=== PATIENT | female | born 1955 | race Caucasian/White ===

== ENCOUNTER 2019-10-22 12:02 | Observation (INO) ==
[2019-10-22] MEDS ORDERED: ROCEPHIN VIAL 1 GRAM 1 G in NS 100 ML IV + SPIKE MINIBAG* 100 ML IV SCH (17:00)
[2019-10-22] MEDS: DUONEB 0.5 MG/3 MG (3 mL) NEB SCH ×2 (17:11→20:51)
[2019-10-22 17:51] LABS: BASOPHILS % (AUTO) 0.8 % (0.2-1.0); EOSINOPHILS # (AUTO) 0.1 x10^3/uL (0.0-0.2); EOSINOPHILS % (AUTO) 2.1 % (0.9-2.9); HEMOGLOBIN 14.3 g/dL (12.0-16.0); LYMPHOCYTES # (AUTO) 1.4 X10^3/uL (1.3-2.9); LYMPHOCYTES % (AUTO) 21.1 % (21.0-51.0); MEAN CORPUSCULAR HEMOGLOBIN 29.1 pg (27.0-34.0); MEAN CORPUSCULAR HGB CONC 33.3 g/dL (33.0-35.0); MEAN CORPUSCULAR VOLUME 87.4 fL (80.0-100.0); MEAN PLATELET VOLUME 7.1 fL (7.4-11.0); MONOCYTES # (AUTO) 1.2 x10^3/uL (0.3-0.8); MONOCYTES % (AUTO) 18.7 % (0.0-13.0); NEUTROPHILS # (AUTO) 3.7 x10^3/uL (2.2-4.8); NEUTROPHILS % (AUTO) 57.3 % (42.0-75.0); PLATELET COUNT 357 X10^3/uL (150.0-450.0); RED BLOOD COUNT 4.92 X10^6/uL (3.5-5.4); WHITE BLOOD COUNT 6.4 X10^3/uL (3.6-10.0)
[2019-10-22] MEDS: NS 1000 ML 1,000 ML IV SCH (18:00)
[2019-10-22 18:50] VITALS: BMI 41.1
[2019-10-22 18:53] LABS: ALANINE AMINOTRANSFERASE 37 Units/L (12-78); ALKALINE PHOSPHATASE 98 Units/L (46-116); ASPARTATE AMINO TRANSFERASE 31 Units/L (15-37); BLOOD UREA NITROGEN 10 mg/dL (7-18); CALCIUM 9.5 mg/dL (8.5-10.1); CARBON DIOXIDE 31.3 mmol/L (21-32); CHLORIDE 101 mmol/L (98-107); CKMB % 2.3 % (<4); COR CA(FOR HYPOALB) 10.3 mg/dL (8.5-10.1); CREATINE KINASE 43 Units/L (26-192); CREATINE KINASE MB < 1.0 ng/mL (0-4.0); CREATININE 0.88 mg/dL (0.55-1.02); SODIUM 141 mmol/L (136-145); TROPONIN I < 0.02 ng/mL (0-1.5); eGFR NON BLACK RACES > 60 (>60)
--- NOTE | 2019-10-22 20:19 | RAD ---
HISTORYSOB, CHEST PAINSTUDYCHEST, [address] November 20, 2018FINDINGSThe trachea is midline. Enlarged cardiomediastinal silhouette. Mild central vascular congestion and pulmonary prominence. No focal consolidation or pneumothorax. The bony thorax is intact.IMPRESSIONMild central vascular congestion and pulmonary edema.Electronically signed by: BRENDON AMARO (Oct 22, 2019 20:19:47)
[2019-10-22] MEDS: PULMICORT NEB TX 0.5 MG NEB SCH (20:51)
[2019-10-22] MEDS: ROCEPHIN VIAL 1 GRAM 1 G in NS 100 ML IV + SPIKE MINIBAG* 100 ML IV SCH (21:02)
[2019-10-22] MEDS: TYLENOL 325 MG TAB PO PRN (21:03)
[2019-10-22 21:30] LABS: CKMB % 2.4 % (<4); CREATINE KINASE 41 Units/L (26-192); CREATINE KINASE MB < 1.0 ng/mL (0-4.0); TROPONIN I < 0.02 ng/mL (0-1.5)
[2019-10-23] MEDS: DUONEB 0.5 MG/3 MG (3 mL) NEB SCH ×6 (01:00→21:00)
[2019-10-23 01:25] LABS: CKMB % 3.3 % (<4); CREATINE KINASE 42 Units/L (26-192); CREATINE KINASE MB 1.4 ng/mL (0-4.0); TROPONIN I < 0.02 ng/mL (0-1.5)
[2019-10-23] MEDS: NS 1000 ML 1,000 ML IV SCH ×2 (05:52→22:43)
[2019-10-23 06:43] LABS: BASOPHILS % (AUTO) 0.7 % (0.2-1.0); EOSINOPHILS # (AUTO) 0.1 x10^3/uL (0.0-0.2); EOSINOPHILS % (AUTO) 1.9 % (0.9-2.9); HEMATOCRIT 39.3 % (36.0-47.0); HEMOGLOBIN 13.1 g/dL (12.0-16.0); LYMPHOCYTES # (AUTO) 1.5 X10^3/uL (1.3-2.9); LYMPHOCYTES % (AUTO) 32.5 % (21.0-51.0); MEAN CORPUSCULAR HGB CONC 33.3 g/dL (33.0-35.0); MEAN CORPUSCULAR VOLUME 87.2 fL (80.0-100.0); MEAN PLATELET VOLUME 7.1 fL (7.4-11.0); MONOCYTES # (AUTO) 0.9 x10^3/uL (0.3-0.8); NEUTROPHILS # (AUTO) 2.1 x10^3/uL (2.2-4.8); NEUTROPHILS % (AUTO) 44.9 % (42.0-75.0); PLATELET COUNT 306 X10^3/uL (150.0-450.0); RED CELL DISTRIBUTION WIDTH 14.1 % (11.6-16.5); WHITE BLOOD COUNT 4.7 X10^3/uL (3.6-10.0)
[2019-10-23 07:05] LABS: ALANINE AMINOTRANSFERASE 31 Units/L (12-78); ALBUMIN 2.6 g/dL (3.4-5.0); ALKALINE PHOSPHATASE 83 Units/L (46-116); ASPARTATE AMINO TRANSFERASE 25 Units/L (15-37); BLOOD UREA NITROGEN 9 mg/dL (7-18); CALCIUM 8.8 mg/dL (8.5-10.1); CHLORIDE 104 mmol/L (98-107); COR CA(FOR HYPOALB) 9.9 mg/dL (8.5-10.1); COR NA(FOR HYPERGLY) 142 mmol/L (136-145); CREATININE 0.74 mg/dL (0.55-1.02); SODIUM 142 mmol/L (136-145); TOTAL PROTEIN 6.9 g/dL (6.4-8.2); eGFR NON BLACK RACES > 60 (>60)
--- NOTE | 2019-10-23 07:43 | RAD ---
HISTORYSOBSTUDYCHEST, 1 VIEWCOMPARISONPortable chest October 22, 2019FINDINGSThe trachea is midline. The cardiac silhouette is unremarkable . The lungs are clear without focal infiltrate or effusion. The bony thorax is unremarkable.IMPRESSIONMild chronic changes in the bases but no acute cardiopulmonary disease and no significant change compared to yesterday's portable chest.Electronically signed by: MONIQUE JIMENEZ (Oct 23, 2019 07:42:19)
[2019-10-23] MEDS: PULMICORT NEB TX 0.5 MG NEB SCH ×2 (08:16→21:00)
[2019-10-23] MEDS ORDERED: ROCEPHIN VIAL 1 GRAM 1 G in NS 100 ML IV + SPIKE MINIBAG* 100 ML IV SCH (09:00)
[2019-10-23] MEDS ORDERED: PATIENT'S HOME MEDICATION (Tiotropium Bromide 1 CAP) IN SCH (10:15)
[2019-10-23] MEDS: LOVENOX INJ 40 MG SYR SC SCH (10:27)
[2019-10-23] MEDS: LYRICA CAP 150 mg PO SCH ×2 (10:45→21:33)
[2019-10-23] MEDS: PriLOSEC PO SCH (10:45)
[2019-10-23] MEDS: PEPCID TAB 20 MG PO SCH (10:46)
[2019-10-23] MEDS: ZANAFLEX PO SCH ×2 (10:46→21:33)
[2019-10-23] MEDS: HYDROCHLOROTHIAZIDE 25 MG TAB PO SCH (10:46)
[2019-10-23] MEDS: SINGULAIR TAB 10 MG PO SCH ×2 (11:00→21:34)
[2019-10-23] MEDS ORDERED: NS 250 ML IV 250 ML IV ONE (11:09)
[2019-10-23] MEDS: TYLENOL 325 MG TAB PO PRN (12:39)
[2019-10-23] MEDS ORDERED: POTASSIUM CHL 40 MEQ/NS 0.45% 500 ML IV PRN (17:47)
[2019-10-23] MEDS ORDERED: MICRO K EXTEN CAP 10 MEQ PO PRN (17:47)
[2019-10-23] MEDS ORDERED: POTASSIUM CHLORIDE LIQ 20 MEQ UDC PO PRN (17:47)
[2019-10-23] MEDS ORDERED: K-RIDER 10 MEQ/NS 100 ML 10 MEQ/100 ML BAG IV PRN (17:47)
[2019-10-23] MEDS ORDERED: POTASSIUM CHL 60 MEQ/NS 0.45% 500 ML IV PRN (17:47)
[2019-10-23] MEDS ORDERED: KLOR-CON PO PRN (17:47)
[2019-10-23] MEDS ORDERED: K-DUR TAB 20 MEQ PO PRN (17:47)
[2019-10-23] MEDS ORDERED: CRESTOR TAB 10 MG PO SCH (21:00)
[2019-10-23] MEDS ORDERED: KLONOPIN TAB 1 MG PO SCH (21:00)
--- NOTE | 2019-10-23 21:03 | DR.UPDATE ---
H&P Update History and Physical Update: History and Physical reviewed and patient examined. Changes noted: Yes with the following: WAS SEEN IN THE OFFICE FOR COMPLAINTS OF SHORTNESS OF BREATH, COUGH, AND SHORTNESS OF BREATH. SHE ALSO REPORTED INTERMITTENT CHEST PAIN AND HAD A SYNCOPAL EPISODE ONE DAY PRIOR. SHE REPORTS TAKING LEVAQUIN AND RESPIRATORY TREATMENTS AT HOME FOR BRONCHITIS WITHOUT SIGNIFICANT IMPROVEMENT IN SYMPTOMS. SHE WAS ADMITTED FOR FURTHER EVALUATION AND TREATMENT OF CHEST PAIN, SHORTNESS OF BREATH, AND BRONCHITIS. ON ADMISSION, VITALS WERE 98.0-94-22-94%-147/86. LABS WERE OBTAINED. ABNORMAL LAB VALUES INCLUDE THE FOLLOWING: CORRECTED CALCIUM 10.3, ALBUMIN 3.0, GLOBULIN 5.0. CARDIAC ENZYMES WITHIN NORMAL LIMITS. CHEST XRAY WAS OBTAINED AND REVEALED: Mild central vascular congestion and pulmonary edema. EKG REVEALED: SINUS RHYTHM WITH HR 85. SHE WAS STARTED ON NS AT KVO, THE POTASSIUM AND MAGNESIUM PROTOCOLS, ROCEPHIN 1G IV AT BEDTIME, RESPIRATORY TREATMENTS, LOVENOX 40MG SC DAILY, AND HOME MEDICATIONS WERE RESUMED. WE WILL OBTAIN AN ECHO AND CHEST CT WITH CONTRAST TODAY. OTHERWISE, WE WILL FOLLOW UP WITH AM LABS AND CHEST XRAY AND CONTINUE TO MONITOR. Prescription drug monitoring program results: PDMP reviewed and no concerns identified H&P Reviewed: Yes Patient was examined?: Yes
[2019-10-23] MEDS: ROCEPHIN VIAL 1 GRAM 1 G in NS 100 ML IV + SPIKE MINIBAG* 100 ML IV SCH (21:33)
[2019-10-24] MEDS: DUONEB 0.5 MG/3 MG (3 mL) NEB SCH ×3 (00:48→10:26)
[2019-10-24 06:21] LABS: BASOPHILS % (AUTO) 0.9 % (0.2-1.0); EOSINOPHILS # (AUTO) 0.2 x10^3/uL (0.0-0.2); EOSINOPHILS % (AUTO) 3.5 % (0.9-2.9); HEMATOCRIT 39.5 % (36.0-47.0); HEMOGLOBIN 13.1 g/dL (12.0-16.0); LYMPHOCYTES # (AUTO) 1.5 X10^3/uL (1.3-2.9); LYMPHOCYTES % (AUTO) 32.9 % (21.0-51.0); MEAN CORPUSCULAR HEMOGLOBIN 29.1 pg (27.0-34.0); MONOCYTES # (AUTO) 0.8 x10^3/uL (0.3-0.8); MONOCYTES % (AUTO) 17.8 % (0.0-13.0); NEUTROPHILS % (AUTO) 44.9 % (42.0-75.0); PLATELET COUNT 306 X10^3/uL (150.0-450.0); RED BLOOD COUNT 4.49 X10^6/uL (3.5-5.4); RED CELL DISTRIBUTION WIDTH 14.3 % (11.6-16.5); WHITE BLOOD COUNT 4.5 X10^3/uL (3.6-10.0)
--- NOTE | 2019-10-24 06:36 | RAD ---
HISTORYSOBSTUDYPortable AP chestCOMPARISONMarch 2019FINDINGSThere is mild interstitial lung disease. The heart and mediastinum are unremarkable. There is a thin linear opacity at the right costophrenic angle, apparently new and also at the left costophrenic angle. There is no effusion.IMPRESSIONMinimal plate atelectasis at both costophrenic angles.Electronically signed by: RISHABH ROWLAND (Oct 24, 2019 06:35:38)
[2019-10-24 06:59] LABS: ALANINE AMINOTRANSFERASE 30 Units/L (12-78); ALBUMIN 2.6 g/dL (3.4-5.0); ALKALINE PHOSPHATASE 78 Units/L (46-116); ASPARTATE AMINO TRANSFERASE 24 Units/L (15-37); BLOOD UREA NITROGEN 8 mg/dL (7-18); CHLORIDE 105 mmol/L (98-107); COR CA(FOR HYPOALB) 10.1 mg/dL (8.5-10.1); CREATININE 0.78 mg/dL (0.55-1.02); SODIUM 142 mmol/L (136-145); TOTAL PROTEIN 6.8 g/dL (6.4-8.2); eGFR NON BLACK RACES > 60 (>60)
--- NOTE | 2019-10-24 07:31 | CT ---
HISTORYCOUGH SOB CHEST PAINSTUDYCT chest after intravenous infusion of 75 mL CIS Omnipaque 350. Sagittal and coronal reformations were provided. Axial MIPS were displayed. Dose reduction techniques were utilized.COMPARISONApril 2018FINDINGSThere is a stable ill-defined nodular density posteriorly in the left upper lobe. Previously demonstrated left upper lobe anterior nodule has resolved. There is minimal centrilobular emphysema as before. There is no pleural effusion or lung mass or consolidation. There is no hilar adenopathy. There is no significant mediastinal adenopathy. The visualized upper abdomen is unremarkable. There are mild degenerative changes in the spine.IMPRESSIONResolution of previously demonstrated left upper lobe anteromedial nodule. Unchanged left upper lobe posterior nodular density most likely representing a scar.Electronically signed by: RISHABH ROWLAND (Oct 24, 2019 07:29:39)
[2019-10-24 08:07] VITALS: BP 118/57
[2019-10-24] MEDS: PriLOSEC PO SCH (09:18)
[2019-10-24] MEDS: LYRICA CAP 150 mg PO SCH (09:18)
[2019-10-24] MEDS: HYDROCHLOROTHIAZIDE 25 MG TAB PO SCH (09:18)
[2019-10-24] MEDS: LOVENOX INJ 40 MG SYR SC SCH (09:18)
[2019-10-24] MEDS: PEPCID TAB 20 MG PO SCH (09:18)
--- NOTE | 2019-10-24 10:09 | PCM.PROG ---
Progress Note - Progress Note for Day of Date of Exam: 10/24/19 - Subjective Subjective: IS BEING TREATED FOR BRONCHITIS, CHEST PAIN, AND SHORTNESS OF BREATH. SHE CONTINUES WITH SHORTNESS OF BREATH TODAY, BUT REPORTS IMPROVEMENT SINCE YESTERDAY. ON EXAMINATION, HEART IS REGULAR IN RATE AND RHYTHM. BILATERAL LUNGS ARE NOTED WITH DIMINISHED LUNG SOUNDS THROUGHOUT. ABDOMEN IS ROUND, SOFT, AND NON-TENDER WITH NORMAL BOWEL SOUNDS NOTED IN ALL QUADRANTS. HER VITALS THIS MORNING ARE: 98.0-72-20-93%NC-118/57. LABS WERE OBTAINED. SHE IS HEMODYNAMICALLY STABLE TODAY. A CHEST XRAY WAS OBTAINED TODAY AND REVEALED: Minimal plate atelectasis at both costophrenic angles. A CHEST CT WAS OBTAINED YESTERDAY AND REVEALED: There is a stable ill-defined nodular density posteriorly in the left upper lobe. Previously demonstrated left upper lobe anterior nodule has resolved. There is minimal centrilobular emphysema as before. There is no pleural effusion or lung mass or consolidation. There is no hilar adenopathy. There is no significant mediastinal adenopathy. The visualized upper abdomen is unremarkable. There are mild degenerative changes in the spine. ECHO REVEALED AN EJECTION FRACTION OF 62%, MILD PULMONARY HTN. SHE IS CURRENTLY RECEIVING NS AT KVO, THE POTASSIUM AND MAGNESIUM PROTOCOLS, ROCEPHIN 1G IV AT BEDTIME, RESPIRATORY TREATMENTS, LOVENOX 40MG SC DAILY, AND HOME MEDICATIONS WERE RESUMED. RESPIRATORY DID A 6 MINUTE WALK TEST. OXYGEN SATURATIONS WHILE WALKING FELL TO 87% ON ROOM AIR. WHEN OXYGEN VIA NASAL CANNULA AT 2L/MIN WAS APPLIED, OXYGEN SATURATIONS INCREASED TO 96%. ON ROOM AIR AT REST WHILE AT A CHRONIC STABLE STATE, OXYGEN SATURATIONS ARE 88%. WE WILL SET UP HOME OXYGEN. WE WILL CONTINUE A 10 DAY COURSE OF ANTIBIOTICS AND NEB TX AND FOLLOW HER IN THE OFFICE. - Past Medical Family Social History Past Med/Fam/Surg Hx: No changes since H&P Allergies: Allergies diclofenac Allergy (Verified 10/22/19 19:05) morphine Allergy (Verified 10/22/19 19:05) ondansetron [From Zofran] Allergy (Verified 10/22/19 19:05) oxycodone [From Percocet] Allergy (Verified 10/22/19 19:02) fluticasone [From Advair Diskus] Adverse Reaction (Verified 10/22/19 19:05) salmeterol [From Advair Diskus] Adverse Reaction (Verified 10/22/19 19:05) - Review of Systems ROS: No change since H&P - Vital Signs and I&O's Vital Signs: Temperature 98.0 F Pulse Rate [Left Brachial] 72 Pulse Rate 91 Respiratory Rate 20 Blood Pressure [Right Arm] 118/57 Blood Pressure [Left Arm] 156/77 Blood Pressure 127/75 O2 Sat by Pulse Oximetry 93 Intake and Output: Intake & Output 10/21/19 10/22/19 10/23/19 10/24/19 11:59 11:59 11:59 11:59 Intake Total 1200 / 1200 2049 Balance 1200 / 1200 2049 - Physical Exam Oriented: Normal Eyes: Normal Ear: Normal Nose: Normal Throat: Normal Respiratory: Generalized, Diminished Cardiovascular: Normal. negative: S3, S4, Murmur : Normal Auscultation: Bowel Sounds: Normal Palpation: Normal Tenderness: Normal Skin: Normal Musculoskeletal: Normal Psychiatric: Normal Mood Description: Calm Affect: Normal Speech Pattern: Clear, Appropriate - Laboratory and Diagnostics Result Diagrams: 10/24/19 05:36 10/24/19 05:36 Labs: Laboratory WBC 4.5 X10^3/uL (3.6-10.0) 10/24/19 05:36 RBC 4.49 X10^6/uL (3.5-5.4) 10/24/19 05:36 Hgb 13.1 g/dL (12.0-16.0) 10/24/19 05:36 Hct 39.5 % (36.0-47.0) 10/24/19 05:36 MCV 88.0 fL (80.0-100.0) 10/24/19 05:36 MCH 29.1 pg (27.0-34.0) 10/24/19 05:36 MCHC 33.0 g/dL (33.0-35.0) 10/24/19 05:36 RDW 14.3 % (11.6-16.5) 10/24/19 05:36 Plt Count 306 X10^3/uL (150.0-450.0) 10/24/19 05:36 MPV 7.0 fL (7.4-11.0) L 10/24/19 05:36 Neut % (Auto) 44.9 % (42.0-75.0) 10/24/19 05:36 Lymph % (Auto) 32.9 % (21.0-51.0) 10/24/19 05:36 Mccreary % (Auto) 17.8 % (0.0-13.0) H 10/24/19 05:36 Eos % (Auto) 3.5 % (0.9-2.9) H 10/24/19 05:36 Baso % (Auto) 0.9 % (0.2-1.0) 10/24/19 05:36 Neut # (Auto) 2.0 x10^3/uL (2.2-4.8) L 10/24/19 05:36 Lymph # (Auto) 1.5 X10^3/uL (1.3-2.9) 10/24/19 05:36 [place]reary # (Auto) 0.8 x10^3/uL (0.3-0.8) 10/24/19 05:36 Eos # (Auto) 0.2 x10^3/uL (0.0-0.2) 10/24/19 05:36 Baso # (Auto) 0.0 X10^3/uL (0.0-0.1) 10/24/19 05:36 Absolute Nucleated RBC 0.0 /100WBC 10/24/19 05:36 Sodium 142 mmol/L (136-145) 10/24/19 05:36 Corrected Sodium TNP 10/24/19 05:36 Potassium 3.7 mmol/L (3.5-5.1) 10/24/19 05:36 Chloride 105 mmol/L (98-107) 10/24/19 05:36 Carbon Dioxide 30.0 mmol/L (21-32) 10/24/19 05:36 BUN 8 mg/dL (7-18) 10/24/19 05:36 Creatinine 0.78 mg/dL (0.55-1.02) 10/24/19 05:36 Est GFR (MDRD) Af Amer > 60 (>60) 10/24/19 05:36 Est GFR (MDRD) Non-Af > 60 (>60) 10/24/19 05:36 Glucose 108 mg/dL (65-99) H 10/24/19 05:36 Calcium 9.0 mg/dL (8.5-10.1) 10/24/19 05:36 Corrected Calcium 10.1 mg/dL (8.5-10.1) 10/24/19 05:36 Magnesium 2.1 mg/dL (1.7-2.9) 10/23/19 05:58 Total Bilirubin 0.30 mg/dL (0.2-1.0) 10/24/19 05:36 AST 24 Units/L (15-37) 10/24/19 05:36 ALT 30 Units/L (12-78) 10/24/19 05:36 Alkaline Phosphatase 78 Units/L (46-116) 10/24/19 05:36 Creatine Kinase 42 Units/L (26-192) 10/23/19 00:57 CK-MB (CK-2) 1.4 ng/mL (0-4.0) 10/23/19 00:57 CK/CKMB % Calc 3.3 % (<4) 10/23/19 00:57 Troponin I < 0.02 ng/mL (0-1.5) 10/23/19 00:57 B-Natriuretic Peptide 10.8 pg/mL (0-79) 10/23/19 05:58 Total Protein 6.8 g/dL (6.4-8.2) 10/24/19 05:36 Albumin 2.6 g/dL (3.4-5.0) L 10/24/19 05:36 Globulin 4.2 g/dL (2.5-4.5) 10/24/19 05:36 Albumin/Globulin Ratio 0.6 Ratio (1.1-2.1) L 10/24/19 05:36 - Plan (1) Chronic obstructive lung disease Status: Active Plan: SUPPLEMENTAL OXYGEN, CONTINUE NEB TX AND INHALERS (2) Emphysema of lung Status: Acute Qualifiers: Emphysema type: centrilobular Qualified Code(s): J43.2 - Centrilobular emphysema (3) Bronchitis Status: Acute Plan: CONTINUE ANTIBIOTICS AND NEB TX (4) Shortness of breath Status: Acute (5) Chest pain Status: Resolved Qualifiers: Chest pain type: unspecified Qualified Code(s): R07.9 - Chest pain, unspecified
== END 2019-10-24 11:40 | disposition home or self-care (01) ==
LOC: MED/SURG
PROVIDERS: ADMIT Internal Medicine; ATTEND Internal Medicine
DX: R55 Syncope and collapse; Z72.0 Tobacco use; J43.2 Centrilobular emphysema; R07.89 Other chest pain; R06.02 Shortness of breath; J20.9 Acute bronchitis, unspecified; R26.89 Other abnormalities of gait and mobility
CPT/HCPCS: 36415; 71010; 71045; 71260; 80053; 82550; 82553; 83735; 83880; 84132; 84484; 85025; 93005; 93306; 94640; 94760; 96360; 96361; 96372; 97162; A4216; A4222; G0378; J0696; J1650; J3490; J7030; J7050; J7620; J7626

== ENCOUNTER 2023-02-14 10:45 | Observation (INO) ==
[2023-02-14 11:04] VITALS: BMI 36.6
[2023-02-14] MEDS ORDERED: DUONEB 0.5 MG/3 MG (3 mL) NEB ONE ×2 (11:07→11:18)
[2023-02-14] MEDS ORDERED: SOLU-Medrol 125 MG VIAL IVP ONE (11:07)
[2023-02-14] MEDS ORDERED: NS 1,000 ML IV 1,000 ML ONE (11:08)
--- NOTE | 2023-02-14 11:12 | DR.NAUSEAF ---
HPI Time Seen Time Seen by Provider: 02/14/23 10:58 Primary Care Physician Primary Care Physician: RIVAS Musa Complaints Chief Complaint Doctors Comments: c/o sob and pneumonia x days treated with abx ? 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 Pt has since been on multiple rounds of antibiotics and says she is only getting worse. Pt now c/o constipation with generalized abdominal pain described as constant pinching pain with no alleviating or worsening factors. Pt has also had fever up to 101.0 yesterday. Self Treatment fo Chief Complaint: Pt last took tylenol extra strength this morning around 1030 COVID-19 Coronavirus risk:travel/contact w/high risk person: No Has patient experienced Coronavirus symptoms: No Source History Provided: Patient Mode of Arrival Mode of Arrival: Ambulatory Timing Onset of Chief Complaint: 02/14/23 PMH PMH Past Medical History: Yes Past Medical History: Asthma, COPD, Coronary Artery Disease and [place] Past Medical History Comment: Emphysema Past Surgical History: Yes Surgical History: Appendectomy, and Hysterectomy Past Surgical History Comment: exploratory laparotomy, neck surgery, back surgery, bilateral carpal tunnel release Family History History of Family Medical Conditions: Yes Family Medical History: Diabetes Mellitus, Cancer and Hypertension Family Medical History Comment: CVA Social History Does patient currently use any type of tobacco product: No Have you used tobacco products in the last 12 months: No Type of Tobacco Use: None Does any household member use tobacco: No Alcohol Use: None Do you use any recreational Drugs:: No Lives With: Spouse Lives Where: Home Travel Risk Coronavirus risk:travel/contact w/high risk person: No Has patient experienced Coronavirus symptoms: No Infectious screening In the last 2 months have you had wt loss of >10#?: NO Have you had fever, night sweats or hemotysis?: No Have you traveled outside the country in the last 6 months?: No Isolation: Standard ROS Review of Systems Respiratoy: Short of Breath All Other Systems: Reviewed and Negative PE Vital Signs Vitals: Vital Signs Temperature 98.9 F Pulse Rate 99 Pulse Rate 102 Pulse Rate 103 Pulse Rate 106 Pulse Rate 105 Pulse Rate 108 Pulse Rate 110 Pulse Rate 117 Respiratory Rate 17 Respiratory Rate 20 Respiratory Rate 19 Respiratory Rate 23 Respiratory Rate 24 Respiratory Rate 18 Respiratory Rate 21 Respiratory Rate 22 Blood Pressure 119/63 O2 Sat by Pulse Oximetry 92 O2 Sat by Pulse Oximetry 92 O2 Sat by Pulse Oximetry 93 O2 Sat by Pulse Oximetry 94 O2 Sat by Pulse Oximetry 91 O2 Sat by Pulse Oximetry 91 O2 Sat by Pulse Oximetry 91 02/14/23 10:46 02/14/23 11:06 02/14/23 11:15 Temperature 98.9 F Pulse Rate 117 H 110 H 108 H Respiratory Rate 22 21 18 O2 Sat by Pulse Oximetry 91 L 91 L 91 L Oxygen Delivery Method Room Air Blood Pressure 119/63 Weight 200 lb 02/14/23 11:30 02/14/23 11:45 02/14/23 12:00 Temperature Pulse Rate 105 H 106 H 103 H Respiratory Rate 24 23 19 O2 Sat by Pulse Oximetry 94 L 93 L Oxygen Delivery Method Blood Pressure Weight 02/14/23 12:15 02/14/23 12:30 Temperature Pulse Rate 102 H 99 H Respiratory Rate 20 17 O2 Sat by Pulse Oximetry 92 L 92 L Oxygen Delivery Method Blood Pressure Weight Respiratory Respiratory Exam: Prolonged Expiratory Phase (decreased breath sounds bilat ) MDM Differential Diagnosis Differential Diagnosis: Considerations may Include:: Other (exacerbation copd) COURSE Treatment Treatment: given nebs steroids and cxr shows hyperexpansion Consultation Called: 12:57 Consultation Comments: Dr Araiza agreed to admit ROR Labs Reviewed Result Diagrams: 02/14/23 11:20 02/14/23 11:20 Laboratory: WBC 8.5 X10^3/uL (3.6-10.0) 02/14/23 11:20 RBC 4.63 X10^6/uL (3.5-5.4) 02/14/23 11:20 Hgb 13.8 g/dL (12.0-16.0) 02/14/23 11:20 Hct 40.9 % (36.0-47.0) 02/14/23 11:20 MCV 88.5 fL (80.0-100.0) 02/14/23 11:20 MCH 29.8 pg (27.0-34.0) 02/14/23 11:20 MCHC 33.6 g/dL (33.0-35.0) 02/14/23 11:20 RDW 14.1 % (11.6-16.5) 02/14/23 11:20 Plt Count 321 X10^3/uL (150.0-450.0) 02/14/23 11:20 MPV 7.5 fL (7.4-11.0) 02/14/23 11:20 Neut % (Auto) 63.7 % (42.0-75.0) 02/14/23 11:20 Lymph % (Auto) 16.0 % (21.0-51.0) L 02/14/23 11:20 [place] % (Auto) 16.4 % (0.0-13.0) H 02/14/23 11:20 Eos % (Auto) 3.4 % (0.9-2.9) H 02/14/23 11:20 Baso % (Auto) 0.5 % (0.2-1.0) 02/14/23 11:20 Neut # (Auto) 5.4 x10^3/uL (2.2-4.8) H 02/14/23 11:20 Lymph # (Auto) 1.4 X10^3/uL (1.3-2.9) 02/14/23 11:20 [place] # (Auto) 1.4 x10^3/uL (0.3-0.8) H 02/14/23 11:20 Eos # (Auto) 0.3 x10^3/uL (0.0-0.2) H 02/14/23 11:20 Baso # (Auto) 0.0 X10^3/uL (0.0-0.1) 02/14/23 11:20 Absolute Nucleated RBC 0.0 /100WBC 02/14/23 11:20 D-Dimer 1.38 ug/ml (0.0-0.57) H 02/14/23 11:20 Sample Site Lrad 02/14/23 11:29 ABG pH 7.500 (7.35-7.45) H 02/14/23 11:29 ABG pCO2 32.0 mmHg (35.0-45.0) L 02/14/23 11:29 ABG pO2 58.0 mmHg (80.0-100.0) L 02/14/23 11:29 ABG HCO3 25.0 mmol/L (22-26) 02/14/23 11:29 ABG O2 Saturation 92.0 % (90-100) 02/14/23 11:29 ABG Base Excess 2.3 mmol/L (-2.0-2.0) H 02/14/23 11:29 Chucho Test Pos 02/14/23 11:29 A-a Gradient 52.0 mmHg 02/14/23 11:29 FiO2 21.0 02/14/23 11:29 Blood Gas Comments Pt jorgito well elj gregorio 02/14/23 11:29 Sodium 135 mmol/L (136-145) L 02/14/23 11:20 Corrected Sodium 136 mmol/L (136-145) 02/14/23 11:20 Potassium 3.8 mmol/L (3.5-5.1) 02/14/23 11:20 Chloride 98 mmol/L (98-107) 02/14/23 11:20 Carbon Dioxide 24.2 mmol/L (21-32) 02/14/23 11:20 BUN 19 mg/dL (7-18) H 02/14/23 11:20 Creatinine 1.00 mg/dL (0.55-1.02) 02/14/23 11:20 Est GFR (MDRD) Af Amer > 60 (>60) 02/14/23 11:20 Est GFR (MDRD) Non-Af 59 (>60) 02/14/23 11:20 Glucose 121 mg/dL (65-99) H 02/14/23 11:20 Lactic Acid 1.2 mmol/L (0.4-2.0) 02/14/23 11:20 Calcium 9.3 mg/dL (8.5-10.1) 02/14/23 11:20 Corrected Calcium 10.3 mg/dL (8.5-10.1) H 02/14/23 11:20 Total Bilirubin 0.30 mg/dL (0.2-1.0) 02/14/23 11:20 AST 16 Units/L (15-37) 02/14/23 11:20 ALT 15 Units/L (12-78) 02/14/23 11:20 Alkaline Phosphatase 75 Units/L (46-116) 02/14/23 11:20 Troponin I High Sens 5.8 ng/L (4.0-60.0) 02/14/23 11:20 Total Protein 7.6 g/dL (6.4-8.2) 02/14/23 11:20 Albumin 2.8 g/dL (3.4-5.0) L 02/14/23 11:20 Globulin 4.8 g/dL (2.5-4.5) H 02/14/23 11:20 Albumin/Globulin Ratio 0.6 Ratio (1.1-2.1) L 02/14/23 11:20 Amylase 43 Units/L (25-115) 02/14/23 11:20 Lipase 81 Units/L (73-393) 02/14/23 11:20 SARS-CoV-2 (PCR) Negative (NEGATIVE) 02/14/23 11:12 Influenza Type A (PCR) Negative (NEGATIVE) 02/14/23 11:12 Influenza Type B (PCR) Negative (NEGATIVE) 02/14/23 11:12 RSV (PCR) Negative (NEGATIVE) 02/14/23 11:12 S. pyogenes (TEM-PCR) Not detected (NOT DETECT) 02/14/23 11:37 Opioid Opioid Risk Tool Age (Memo box if 16-45): No History of Preadolescent Sexual Abuse: No Total: 0 Total Score Risk Category: Low Risk Copyright: Donnie CABRERA predicting aberrant behaviors Discharge Plan Diagnosis Discharge Problem: Hypoxia Discharge Plan Patient Disposition: 09 ADMITTED INPATIENT Condition: Stable Prescriptions: No Action omeprazole 20 MG capsule,delayed release(DR/EC) 40 mg PO DAILY famotidine 20 mg Tablet 20 mg PO DAILY montelukast 10 mg Tablet 10 mg PO QHS rosuvastatin 20 mg Tablet 10 mg PO HS Spiriva with HandiHaler 18 mcg Capsule, W/Inhalation Device 1 cap INHALATION DAILY tizanidine 4 mg Capsule 4 mg PO QHS PRN pregabalin 150 mg Capsule 150 mg PO TID hydrochlorothiazide 12.5 mg Tablet 25 mg PO DAILY potassium chloride 10 mEq tablet,ER particles/crystals 1 tab PO QDAY Ozempic 1 mg/dose (4 mg/3 mL) pen injector 1 mg SUBCUT QWEEK hydrocodone-acetaminophen 5-325 mg Tablet 1 tab PO QID docusate sodium [Stool Softener] 100 mg Capsule 100 mg PO HS folic acid 1 mg Tablet 1 mg PO DAILY Ventolin 90 mcg/actuation Aerosol 90 mcg INHALATION PRN PRN cholecalciferol (vitamin D3) [D-3-5] 125 mcg (5,000 unit) Capsule 50,000 unit PO WEEKLY budesonide-formoterol [Symbicort] 160-4.5 mcg/actuation Hfa Aerosol Inhaler 2 puff INHALATION BID Aleve PM 220-25 mg Tablet 2 tab PO HS Breztri Aerosphere 160-9-4.8 mcg/actuation Hfa Aerosol Inhaler 2 inh INHALATION HS Health Concerns: Post Hospitalization: new medications and changes needed to prevent readmission or further decline. Pt educated and given instructions on all concerns. Plan of Treatment: Continue with present treatment and follow up plan. Pt is to keep follow up appointment as instructed and take medications as ordered. Follow ups/Referrals Follow ups/Referrals: Stevie Araiza [Primary Care Provider] - 3 days Instructions Stand Alone Forms: Post Hospital Follow Up Care
[2023-02-14] MEDS ORDERED: NS 1,000 ML IV 1,000 ML IV ONE (11:23)
[2023-02-14] MEDS ORDERED: SOLU-Medrol 125 MG VIAL ONE (11:24)
[2023-02-14] MEDS ORDERED: XOPENEX 1.25 MG/3 ML NEBULE NEB ONE ×2 (11:31→11:33)
[2023-02-14 11:40] LABS: BASOPHILS % (AUTO) 0.5 % (0.2-1.0); EOSINOPHILS # (AUTO) 0.3 x10^3/uL (0.0-0.2); EOSINOPHILS % (AUTO) 3.4 % (0.9-2.9); HEMATOCRIT 40.9 % (36.0-47.0); HEMOGLOBIN 13.8 g/dL (12.0-16.0); LYMPHOCYTES # (AUTO) 1.4 X10^3/uL (1.3-2.9); MEAN CORPUSCULAR HEMOGLOBIN 29.8 pg (27.0-34.0); MEAN CORPUSCULAR HGB CONC 33.6 g/dL (33.0-35.0); MEAN CORPUSCULAR VOLUME 88.5 fL (80.0-100.0); MEAN PLATELET VOLUME 7.5 fL (7.4-11.0); MONOCYTES # (AUTO) 1.4 x10^3/uL (0.3-0.8); MONOCYTES % (AUTO) 16.4 % (0.0-13.0); NEUTROPHILS # (AUTO) 5.4 x10^3/uL (2.2-4.8); NEUTROPHILS % (AUTO) 63.7 % (42.0-75.0); PLATELET COUNT 321 X10^3/uL (150.0-450.0); RED BLOOD COUNT 4.63 X10^6/uL (3.5-5.4); RED CELL DISTRIBUTION WIDTH 14.1 % (11.6-16.5); WHITE BLOOD COUNT 8.5 X10^3/uL (3.6-10.0)
[2023-02-14 11:41] LABS: ABG BASE EXCESS 2.3 mmol/L (-2.0-2.0)
[2023-02-14 11:42] LABS: ABG ALLEN TEST POS
--- NOTE | 2023-02-14 11:47 | EKG ---
Test Reason : sob Blood Pressure : */* mmHG Vent. Rate : 105 BPM Atrial Rate : 105 BPM P-R Int : 136 ms QRS Dur : 76 ms QT Int : 334 ms P-R-T Axes : 60 -12 40 degrees QTc Int : 441 ms Sinus tachycardia Inferior infarct , age undetermined Abnormal ECG No previous ECGs available Confirmed by Vic Hicks ([id number]) on 02/14/2023 6:32:08 PM Referred By: Confirmed By: Vic Hicks
[2023-02-14 11:56] LABS: ALANINE AMINOTRANSFERASE 15 Units/L (12-78); ALBUMIN 2.8 g/dL (3.4-5.0); ALKALINE PHOSPHATASE 75 Units/L (46-116); AMYLASE 43 Units/L (25-115); ASPARTATE AMINO TRANSFERASE 16 Units/L (15-37); BLOOD UREA NITROGEN 19 mg/dL (7-18); CALCIUM 9.3 mg/dL (8.5-10.1); CARBON DIOXIDE 24.2 mmol/L (21-32); CHLORIDE 98 mmol/L (98-107); COR CA(FOR HYPOALB) 10.3 mg/dL (8.5-10.1); COR NA(FOR HYPERGLY) 136 mmol/L (136-145); GLUCOSE 121 mg/dL (65-99); LIPASE 81 Units/L (73-393); POTASSIUM 3.8 mmol/L (3.5-5.1); SODIUM 135 mmol/L (136-145); TOTAL PROTEIN 7.6 g/dL (6.4-8.2); eGFR NON BLACK RACES 59 (>60)
[2023-02-14] MEDS ORDERED: ROCEPHIN VIAL 1 GRAM 1 G in NS 100 ML IV 100 ML IV ONE (12:00)
[2023-02-14] MEDS ORDERED: NS 100 ML IV 100 ML ONE (12:21)
[2023-02-14] MEDS ORDERED: ROCEPHIN VIAL 1 GRAM ONE (12:21)
[2023-02-14] MEDS ORDERED: OMNIPAQUE 350 mg/mL 100 mL BTL 100 ML ONE (12:24)
--- NOTE | 2023-02-14 13:23 | CT ---
CTA CHESTCLINICAL INDICATION: POSS PEPROCEDURE: Non gated axial images of the chest were obtained with intravenous contrast according to pulmonary embolism protocol. MIPS were reconstructed Dose reduction techniques including Automated Exposure Control (AEC) and adjustment of mA and kV were utlized.COMPARISON:NoneFINDINGS:No evidence of a pulmonary embolism to the level of the segmental pulmonary arteries.The heart is normal in size . No pericardial effusion. Severe coronary calcification. Shotty mediastinal adenopathy.. Diffuse patchy ground-glass with some more focal regions of solid opacity involving primarily the lower lobes. Diffuse septal thickening is present. No pneumothorax .Airways are patent . No suspicious pulmonary nodules or masses .Limited images of the upper abdomen are unremarkable.No aggressive osseous lesions.IMPRESSION:1. No evidence of pulmonary embolism.2. Findings possibly representing acute atypical infection.Electronically signed by: ASAD MOREL (Feb 14, 2023 13:21:02)
[2023-02-14] MEDS: SOLU-Medrol 40 MG VIAL IVP SCH ×2 (14:11→21:20)
[2023-02-14] MEDS: LYRICA CAP 150 mg PO SCH ×2 (14:12→21:20)
[2023-02-14] MEDS: LOVENOX INJ 40 MG SYR SC SCH (14:13)
[2023-02-14] MEDS: ROCEPHIN VIAL 1 GRAM 1 G in NS 100 ML IV 100 ML IV SCH (14:13)
[2023-02-14] MEDS ORDERED: KLOR-CON PO SCH (14:30)
[2023-02-14 14:43] LABS: BILIRUBIN,URINE NEGATIVE (NEGATIVE); BLOOD/HEMOGLOBIN,URINE NEGATIVE (NEGATIVE); GLUCOSE, URINE NEGATIVE (NEGATIVE); KETONES,URINE NEGATIVE (NEGATIVE); LEUKOCYTE ESTERASE ,URINE NEGATIVE (NEGATIVE); NITRITES,URINE NEGATIVE (NEGATIVE); PROTEIN,URINE NEGATIVE (NEGATIVE); UROBILINOGEN,URINE NORMAL (NORMAL)
[2023-02-14 14:46] LABS: APPEARANCE,URINE CLEAR (CLEAR); COLOR,URINE YELLOW (YELLOW)
--- NOTE | 2023-02-14 14:59 | RAD ---
HISTORYSOB ASTHMA, COPD, CAD, , , HYST, NECK, BACK, CARPEL TUNNELSTUDYCHEST, 1 VIEWCOMPARISONNone availableFINDINGSThe trachea is midline. The cardiac silhouette is unremarkable. No focal pneumonia pneumothorax or pleural effusions. There is some increase of the interstitial markings at the bases probably chronic.IMPRESSIONNo acute cardiopulmonary findings .Suspected chronic changes in the bases with mild peribronchial thickening.Electronically signed by: Vickie Ca (Feb 14, 2023 14:57:41)
[2023-02-14] MEDS: XOPENEX 1.25 MG/3 ML NEBULE NEB SCH ×2 (16:23→20:49)
[2023-02-14] MEDS ORDERED: NovoLIN R (or HumuLIN R) SUBCUT PRN (20:18)
[2023-02-14] MEDS ORDERED: LYRICA CAP 150 mg PO ONE (20:29)
[2023-02-14] MEDS ORDERED: SOLU-Medrol 40 MG VIAL ONE (20:29)
[2023-02-14] MEDS ORDERED: NovoLIN R (or HumuLIN R) ONE (20:30)
[2023-02-14] MEDS: PULMICORT NEB TX 0.5 MG NEB SCH (20:49)
[2023-02-14] MEDS: CRESTOR TAB 10 MG PO SCH (21:19)
[2023-02-14] MEDS: SINGULAIR TAB 10 MG PO SCH (21:20)
[2023-02-14] MEDS: COLACE CAP 100 MG PO PRN (21:22)
[2023-02-15] MEDS ORDERED: TYLENOL 325 MG TAB PO PRN (00:32)
[2023-02-15] MEDS: SOLU-Medrol 40 MG VIAL IVP SCH ×3 (05:33→21:24)
[2023-02-15] MEDS: LYRICA CAP 150 mg PO SCH ×3 (05:34→21:23)
--- NOTE | 2023-02-15 05:36 | EKG ---
Test Reason : cp Blood Pressure : */* mmHG Vent. Rate : 68 BPM Atrial Rate : 68 BPM P-R Int : 154 ms QRS Dur : 82 ms QT Int : 434 ms P-R-T Axes : 68 9 43 degrees QTc Int : 461 ms Normal sinus rhythm Normal ECG When compared with ECG of 14-FEB-2023 11:45, Vent. rate has decreased BY 37 BPM Criteria for Inferior infarct are no longer present Confirmed by Vic Hicks ([id number]) on 02/16/2023 6:04:18 PM Referred By: Confirmed By: Vic Hicks
[2023-02-15 06:07] LABS: BASOPHILS % (AUTO) 0.2 % (0.2-1.0); EOSINOPHILS % (AUTO) 0.1 % (0.9-2.9); HEMATOCRIT 42.1 % (36.0-47.0); HEMOGLOBIN 14.1 g/dL (12.0-16.0); LYMPHOCYTES # (AUTO) 1.1 X10^3/uL (1.3-2.9); LYMPHOCYTES % (AUTO) 13.9 % (21.0-51.0); MEAN CORPUSCULAR HEMOGLOBIN 29.8 pg (27.0-34.0); MEAN CORPUSCULAR HGB CONC 33.5 g/dL (33.0-35.0); MEAN PLATELET VOLUME 7.7 fL (7.4-11.0); MONOCYTES # (AUTO) 0.3 x10^3/uL (0.3-0.8); MONOCYTES % (AUTO) 3.6 % (0.0-13.0); NEUTROPHILS # (AUTO) 6.3 x10^3/uL (2.2-4.8); NEUTROPHILS % (AUTO) 82.2 % (42.0-75.0); PLATELET COUNT 363 X10^3/uL (150.0-450.0); RED BLOOD COUNT 4.73 X10^6/uL (3.5-5.4); RED CELL DISTRIBUTION WIDTH 13.4 % (11.6-16.5); WHITE BLOOD COUNT 7.7 X10^3/uL (3.6-10.0)
[2023-02-15 06:28] LABS: ALANINE AMINOTRANSFERASE 16 Units/L (12-78); ALKALINE PHOSPHATASE 73 Units/L (46-116); ASPARTATE AMINO TRANSFERASE 12 Units/L (15-37); BLOOD UREA NITROGEN 14 mg/dL (7-18); CALCIUM 9.6 mg/dL (8.5-10.1); CARBON DIOXIDE 27.9 mmol/L (21-32); CHLORIDE 103 mmol/L (98-107); COR CA(FOR HYPOALB) 10.4 mg/dL (8.5-10.1); COR NA(FOR HYPERGLY) 143 mmol/L (136-145); CREATININE 1.07 mg/dL (0.55-1.02); GLUCOSE 151 mg/dL (65-99); MAGNESIUM 2.2 mg/dL (2.0-2.9); POTASSIUM 3.7 mmol/L (3.5-5.1); SODIUM 142 mmol/L (136-145); eGFR NON BLACK RACES 55 (>60)
--- NOTE | 2023-02-15 08:12 | RAD ---
HISTORYHypoxia, COPDSTUDYChest AP [id number]/28/2023FINDINGSHear t size is normal. Yulia are normal. Lungs are well inflated and free of acute alveolar infiltrates. No pleural effusions are identified. Bony thorax is unremarkable.IMPRESSIONNo significant abnormality identifiedElectronically signed by: BARBARA WITT (Feb 15, 2023 08:10:45)
[2023-02-15] MEDS: PULMICORT NEB TX 0.5 MG NEB SCH ×2 (08:25→20:50)
[2023-02-15] MEDS: XOPENEX 1.25 MG/3 ML NEBULE NEB SCH ×4 (08:25→20:50)
[2023-02-15 08:52] VITALS: RESP 20
[2023-02-15] MEDS: HYDROCHLOROTHIAZIDE 25 MG TAB PO SCH (09:45)
[2023-02-15] MEDS: PriLOSEC PO SCH (09:46)
[2023-02-15] MEDS: PEPCID TAB 20 MG PO SCH (09:46)
[2023-02-15] MEDS: LOVENOX INJ 40 MG SYR SC SCH (09:46)
[2023-02-15] MEDS: ROCEPHIN VIAL 1 GRAM 1 G in NS 100 ML IV 100 ML IV SCH (09:46)
[2023-02-15] MEDS ORDERED: K-DUR TAB 20 MEQ PO SCH (10:00)
--- NOTE | 2023-02-15 10:21 | DR.H&P ---
H&P - History & Physical for Day of: H&P Date: 02/14/23 - Chief Complaint Chief Complaint: SOB, COUGH - History of Present Illness History of Present Illness: IS A 67 YEAR OLD PATIENT OF OURS. SHE HAS A PMH OF ASTHMA, COPD, EMPHYSEMA, CAD, IA, APPENDECTOMY, , HYSTERECTOMY, NECK SURGERY, BACK SURGERY, BILATERAL CARPAL TUNNEL RELEASE. SHE PRESENTED TO THE ER WITH COMPLAINTS OF WORSENING SHORTNESS OF BREATH, A NON-PRODUCTIVE COUGH, AND FEELINGS OF TIGHTNESS AROUND THE LUNGS. SHE WAS RECENTLY SEEN BY HER PATHOLOGY MANAGER AND WAS TREATED FOR BILATERAL PNEUMONIA. SHE REPORTS BEING ON MULTIPLE ROUNDS OF ANTIBIOTICS. SHE DENIES IMPROVEMENT IN SYMPTOMS DESPITE COMPLIANCE WITH MEDICATIONS. RECORDS INDICATE THAT SHE WAS PRESCRIBED AZITHROMYCIN X 5 DAYS, BUDESONIDE NEBS, DUONEBS TID, PREDNISONE 20MG X 15 DAYS, AND MOST RECENTLY AUGMENTIN 875/125MG BID. ON ARRIVAL TO THE HOSPITAL, HER VITALS WERE [id number]%-119/63. SHE WAS PLACED ON OXYGEN VIA NASAL CANNULA AT 2 LPM. LABS WERE OBTAINED. WBC 8.5, RBC 4.63, HGB 13.8, HCT 40.9, PLT COUNT 321, D-DIMER 1.38, SODIUM 135, POTASSIUM 3.8, CHLORIDE 98, CARBON DIOXIDE 24.2, BUN 19, CREATININE 1.00, GLUCOSE 121, CALCIUM 9.3, AST 16, ALT 15, ALK PHOS 75, TROPONIN 5.8, TOTAL PROTEIN 7.6, ALBUMIN 2.8, LACTIC ACID 1.2. ABG REVEALED: PH 7.500, PC02 32, P02 58, HC03 25, 02 SAT 92, BASE EXCESS 2.3, FI02 21.0. URINALYSIS WAS OBTAINED AND WAS UNREMARKABLE. BLOOD CULTURES WERE SET UP. A CHEST XRAY WAS OBTAINED AND REVEALED: No acute cardiopulmonary findings. Suspected chronic changes in the bases with mild peribronchial thickening. A CHEST CTA WAS THEN OBTAINED AND REVEALED: 1. No evidence of pulmonary embolism. 2. Findings possibly representing acute atypical infection. EKG REVEALED SINUS TACHYCARDIA WITH HR 105 BPM. IN THE ER, SHE WAS GIVEN SOLU- MEDROL 125MG IV X 1, A NORMAL SALINE 1 LITER BOLUS, XOPENEX NEB X 1, ROCEPHIN 1G IV X 1, AND POTASSIUM CHLORIDE 20MEQ X 1. SHE WAS ADMITTED TO THE HOSPITALS FOR FURTHER EVALUATION AND TREATMENT OF COPD EXACERBATION WITH ACUTE BRONCHITIS, HYPOXIA, SHORTNESS OF BREATH, HYPOKALEMIA. SHE WAS STARTED ON ROCEPHIN 1G IV DAILY, XOPENEX NEBS QID, PULMICORT NEBS BID, LOVENOX 40MG SC DAILY, SOLU-MEDROL 80MG IV Q8H, TYLENOL 650MG PO Q6H PRN, ZYRTEC 10MG DAILY. DUE TO ADMINISTRATION OF SOLU-MEDROL, WE WILL CHECK OTBS ACHS AND ADMINISTER HUMULIN R SLIDING SCALE. HER HOME MEDICATIONS OF COLACE, PEPCID, HCTZ, SINGULAIR, PRILOSEC, LYRICA, AND CRESTOR WERE RESUMED. WE WILL OBTAIN AN AIT RESPIRATORY SWAB AND COLLECT A SPUTUM CULTURE IF SHE IS ABLE TO PRODUCE ANY SPUTUM. OTHERWISE, WE PLAN TO FOLLOW UP WITH AM LABS AND CHEST XRAY AND CONTINUE TO MONITOR. TIME SPENT ON CLINICAL ASSESSMENT, REVIEWING LABS AND IMAGING, DECISION MAKING, AND DOCUMENTATION GREATER THAN 75 MINUTES. - Past Medical History Past Medical History: Asthma, COPD, Coronary Artery Disease, Dyslipidemia, GERD, IA - Past Surgical History Surgical History: Appendectomy, , Hysterectomy - Family History Family Medical History: Diabetes Mellitus, Cancer, Hypertension - Social History Does patient currently use any type of tobacco product: No Have you used tobacco products in the last 12 months: No Type of Tobacco Use: None Does any household member use tobacco: No Alcohol Use: None Drug Use: None - Review of Systems Constitutional: Weakness. denies: Fever, Chills Eyes: No Symptoms Reported ENT: No Symptoms Reported Respiratory: Cough, Shortness of Breath, SOB with Excertion, Wheezing Cardiovascular: No Symptoms Reported Gastrointestinal: No Symptoms Reported Genitourinary: No Symptoms Reported Musculoskeletal: No Symptoms Reported Skin: No Symptoms Reported Neurological: Weakness - Physical Exam Vital Signs: Vital Signs Temperature 98 F Temperature 97.7 F Pulse Rate [Left Radial] 89 Pulse Rate [Left Radial] 77 Pulse Rate 91 Respiratory Rate 20 Respiratory Rate 18 Respiratory Rate 18 Blood Pressure [Right Arm] 157/72 Blood Pressure [Right Arm] 147/75 O2 Sat by Pulse Oximetry 94 O2 Sat by Pulse Oximetry 96 O2 Sat by Pulse Oximetry 96 Oriented: Normal Eyes: Normal Ear: Normal Nose: Normal Throat: Normal Respiratory: Wheezes Throughout Cardiovascular: Tachycardia : Normal Auscultation: Bowel Sounds: Normal Palpation: Normal Tenderness: Normal Skin: Normal Musculoskeletal: Normal Psychiatric: Normal Mood Description: Calm Affect: Normal Speech Pattern: Clear - Assessment/Plan (1) COPD exacerbation Status: Acute Plan: ADMIT, SUPPLEMENTAL OXYGEN, ROCEPHIN 1G IV DAILY, XOPENEX NEBS QID, PULMICORT NEBS BID, LOVENOX 40MG SC DAILY, SOLU-MEDROL 80MG IV Q8H, TYLENOL 650MG PO Q6H PRN, ZYRTEC 10MG DAILY. DUE TO ADMINISTRATION OF SOLU-MEDROL, WE WILL CHECK OTBS ACHS AND ADMINISTER HUMULIN R SLIDING SCALE. HER HOME MEDICA TIONS OF COLACE, PEPCID, HCTZ, SINGULAIR, PRILOSEC, LYRICA, AND CRESTOR WERE RESUMED. (2) Acute bronchitis Qualifiers: Bronchitis organism: unspecified organism Qualified Code(s): J20.9 - Acute bronchitis, unspecified Status: Acute (3) Shortness of breath Status: Acute (4) Hypoxia Status: Acute (5) Hyperlipidemia Qualifiers: Hyperlipidemia type: mixed hyperlipidemia Qualified Code(s): E78.2 - Mixed hyperlipidemia Status: Chronic (6) GERD (gastroesophageal reflux disease) Qualifiers: Esophagitis presence: esophagitis presence not specified Qualified Code(s): K21.9 - Gastro-esophageal reflux disease without esophagitis Status: Chronic - Allergies Allergies/Adverse Reactions: Allergies Allergy/AdvReac Type Severity Reaction Status Date / Time diclofenac Allergy Verified 02/14/23 11:05 morphine Allergy Verified 02/14/23 11:05 ondansetron [From Zofran] Allergy Verified 02/14/23 11:05 oxycodone [From Percocet] Allergy Verified 02/14/23 11:05 fluticasone AdvReac Verified 02/14/23 11:05 [From Advair Diskus] salmeterol AdvReac Verified 02/14/23 11:05 [From Advair Diskus] - Medications Home Medications: Home Medications Medication Instructions Recorded Confirmed omeprazole 20 mg capsule,delayed 40 mg PO DAILY 09/07/16 02/14/23 release famotidine 20 mg tablet 20 mg PO DAILY 10/22/19 02/14/23 hydrochlorothiazide 12.5 mg tablet 25 mg PO DAILY 10/22/19 02/14/23 montelukast 10 mg tablet 10 mg PO QHS 10/22/19 02/14/23 pregabalin 150 mg capsule 150 mg PO TID 10/22/19 02/14/23 rosuvastatin 20 mg tablet 10 mg PO HS 10/22/19 02/14/23 tiotropium bromide 18 mcg capsule 1 cap inhalation DAILY 10/22/19 02/14/23 with inhalation device (Spiriva with HandiHaler) tizanidine 4 mg capsule 4 mg PO QHS PRN 10/22/19 02/14/23 albuterol 90 mcg/actuation aerosol 90 mcg inhalation PRN PRN 02/14/23 02/14/23 inhaler budesonide 160 mcg-glycopyr 9 2 inh inhalation HS 02/14/23 02/14/23 mcg-formot 4.8 mcg/actuation HFA inhaler (Breztri Aerosphere) budesonide-formoterol HFA 160 2 puff inhalation BID 02/14/23 02/14/23 mcg-4.5 mcg/actuation aerosol inhaler (Symbicort) cholecalciferol (vitamin D3) 125 50,000 unit PO WEEKLY 02/14/23 02/14/23 mcg (5,000 unit) capsule docusate sodium 100 mg capsule 100 mg PO HS 02/14/23 02/14/23 (Stool Softener) folic acid 1 mg tablet 1 mg PO DAILY 02/14/23 02/14/23 hydrocodone 5 mg-acetaminophen 325 1 tab PO QID 02/14/23 02/14/23 mg tablet naproxen 220 mg-diphenhydramine 25 2 tab PO HS 02/14/23 02/14/23 mg tablet (Aleve PM) potassium chloride 10 mEq 1 tab PO QDAY 02/14/23 02/14/23 tablet,extended release(part/cryst) semaglutide 1 mg/dose (4 mg/3 mL) 1 mg subcut QWEEK 02/14/23 02/14/23 subcutaneous pen injector (Ozempic)
[2023-02-15] MEDS: ZyrTEC TAB 10 MG PO SCH (12:09)
[2023-02-15] MEDS ORDERED: SNACK - Diabetic Appropriate PO SCH (20:00)
[2023-02-15] MEDS: Atrovent NEB TX 0.02% NEB SCH (20:50)
[2023-02-15] MEDS: CRESTOR TAB 10 MG PO SCH (21:23)
[2023-02-15] MEDS: COLACE CAP 100 MG PO PRN (21:23)
[2023-02-15] MEDS: SINGULAIR TAB 10 MG PO SCH (21:24)
[2023-02-16] MEDS: LYRICA CAP 150 mg PO SCH (05:19)
[2023-02-16] MEDS: SOLU-Medrol 40 MG VIAL IVP SCH (05:19)
--- NOTE | 2023-02-16 05:54 | RAD ---
HISTORYShortness of breathSTUDYCHEST, 1 [id number] trachea is midline. The cardiac silhouette is unremarkable . The lungs are clear without focal infiltrate or effusion. The bony thorax is unremarkable.IMPRESSIONNo acute cardiopulmonary disease.Electronically signed by: TYLER LAWLER (Feb 16, 2023 05:53:16)
[2023-02-16 06:36] LABS: BASOPHILS % (AUTO) 0.1 % (0.2-1.0); HEMATOCRIT 37.5 % (36.0-47.0); HEMOGLOBIN 12.4 g/dL (12.0-16.0); LYMPHOCYTES # (AUTO) 0.8 X10^3/uL (1.3-2.9); LYMPHOCYTES % (AUTO) 5.9 % (21.0-51.0); MEAN CORPUSCULAR HEMOGLOBIN 29.5 pg (27.0-34.0); MEAN CORPUSCULAR HGB CONC 33.2 g/dL (33.0-35.0); MEAN CORPUSCULAR VOLUME 88.9 fL (80.0-100.0); MEAN PLATELET VOLUME 7.9 fL (7.4-11.0); MONOCYTES # (AUTO) 0.4 x10^3/uL (0.3-0.8); MONOCYTES % (AUTO) 2.7 % (0.0-13.0); NEUTROPHILS % (AUTO) 91.3 % (42.0-75.0); PLATELET COUNT 338 X10^3/uL (150.0-450.0); RED BLOOD COUNT 4.22 X10^6/uL (3.5-5.4); RED CELL DISTRIBUTION WIDTH 13.4 % (11.6-16.5); WHITE BLOOD COUNT 14.2 X10^3/uL (3.6-10.0)
[2023-02-16 06:44] LABS: ALANINE AMINOTRANSFERASE 17 Units/L (12-78); ALBUMIN 2.8 g/dL (3.4-5.0); ALKALINE PHOSPHATASE 66 Units/L (46-116); ASPARTATE AMINO TRANSFERASE 14 Units/L (15-37); BLOOD UREA NITROGEN 15 mg/dL (7-18); CALCIUM 9.3 mg/dL (8.5-10.1); CARBON DIOXIDE 27.3 mmol/L (21-32); CHLORIDE 103 mmol/L (98-107); COR CA(FOR HYPOALB) 10.3 mg/dL (8.5-10.1); COR NA(FOR HYPERGLY) 142 mmol/L (136-145); CREATININE 0.85 mg/dL (0.55-1.02); GLUCOSE 176 mg/dL (65-99); SODIUM 140 mmol/L (136-145); TOTAL PROTEIN 7.1 g/dL (6.4-8.2); eGFR NON BLACK RACES > 60 (>60)
[2023-02-16 07:55] LABS: PLATELET MORPHOLOGY COMMENT NORMAL (NORMAL)
[2023-02-16] MEDS: Atrovent NEB TX 0.02% NEB SCH (08:10)
[2023-02-16] MEDS: PULMICORT NEB TX 0.5 MG NEB SCH (08:10)
[2023-02-16] MEDS: XOPENEX 1.25 MG/3 ML NEBULE NEB SCH (08:10)
[2023-02-16 08:59] VITALS: O2SAT 96
[2023-02-16] MEDS: ROCEPHIN VIAL 1 GRAM 1 G in NS 100 ML IV 100 ML IV SCH (09:00)
[2023-02-16 10:15] VITALS: BP 132/63; PULSE 86; TEMP 97.1
[2023-02-16] MEDS: HYDROCHLOROTHIAZIDE 25 MG TAB PO SCH (10:22)
[2023-02-16] MEDS: ZyrTEC TAB 10 MG PO SCH (10:22)
[2023-02-16] MEDS: PriLOSEC PO SCH (10:22)
[2023-02-16] MEDS: LOVENOX INJ 40 MG SYR SC SCH (10:23)
[2023-02-16] MEDS: PEPCID TAB 20 MG PO SCH (10:24)
== END 2023-02-16 10:25 | disposition home or self-care (01) ==
LOC: ER 10:45 → MED/SURG 10:45
PROVIDERS: ADMIT Internal Medicine; ATTEND Internal Medicine
DX: R73.09 Other abnormal glucose; J44.1 Chronic obstructive pulmonary disease with (acute) exacerbation; J20.8 Acute bronchitis due to other specified organisms; R06.02 Shortness of breath; I25.10 Atherosclerotic heart disease of native coronary artery without angina pectoris; Z20.822 Contact with and (suspected) exposure to COVID-19; K21.9 Gastro-esophageal reflux disease without esophagitis; E87.6 Hypokalemia